=== PATIENT | male | born 1965 | race African-American/Black ===

== ENCOUNTER 2017-04-09 14:36 | Emergency (ER) | payer OTHER ==
[~2017-04-09] VITALS: Ht 175.3 cm; Wt 68.0 kg
--- NOTE | ~2017-04-09 | EKG ---
PATIENT: JENNIFER ROJAS UNIT #: [id number] Ventricular Rate: 53 BPM Atrial Rate: 53 BPM P-R Interval: 146 ms QRS Duration: 90 ms Q-T Interval: 432 ms QTC Calculation(Bezet): 405 ms P [place]: 72 degrees Calculated R [place]: 22 degrees Calculated T [place]: 41 degrees Diagnosis Line: Sinus bradycardia Diagnosis Line: Nonspecific ST abnormality Diagnosis Line: Abnormal ECG Diagnosis Line: When compared with ECG of 03-SEP-2012 19:58, Diagnosis Line: No significant change was found Diagnosis Line: Confirmed by AURELIA VALDIVIA MD ([id number]) on Diagnosis Line: 04/12/2017 11:11:35 AM INTERPRETING MD: SKIP ALVAREZ
--- NOTE | ~2017-04-09 | CT71 ---
[facility] A Service of [facility] / [facility] RADIOLOGY TEXT RESULTS PATIENT: JENNIFER ROJAS LOCATION: SED : 67 UNIT #: [id number] AGE: [address]: Jeff Tavarez MD SEX: M ORDER DR: [id number] [place] [id number] MR#: [id number] Acc #: [id number] NAME: JENNIFER ROJAS : 1965 SEX: M STUDY DATE/TIME: 04/09/2017 15:59 UNIT: SED ROOM: STUDY DESCRIPTION: CT Head Wo Contrast Attending Physician: Jeff Tavarez M.D. Ordering Physician: Jeff Tavarez M.D. Primary Care Physician: No Primary Care Physician MEDICAL IMAGING REPORT This report is preliminary unless electronic signature is present. EXAM CT head. INDICATIONS Hypertension. Dizziness. Trauma to the head. Hit a garage door approximately [address] of the head without contrast. This CT exam was performed with one or more of the following radiation dose reduction techniques: automatic exposure control, adjustment of mA and/or kV according to patient size, and iterative reconstruction. COMPARISON None available. FINDINGS Axial noncontrast images were obtained from the skull base to the vertex. Ventricular size and configuration are normal. There is no evidence of acute infarct or hemorrhage. There are no extra-axial fluid collections. No mass lesion or mass effect is seen. There are no skull fractures. There is mild mucosal thickening throughout the paranasal sinuses. IMPRESSION Normal noncontrast head CT. Dictated by... Warner Bacon M.D. [facility] A Service of [facility] / [facility] RADIOLOGY TEXT RESULTS PATIENT: JENNIFER ROJAS LOCATION: SED : 67 UNIT #: [id number] AGE: [address]: Jeff Tavarez MD SEX: M ORDER DR: THIS IS AN ELECTRONICALLY VERIFIED REPORT Warner Bacon M.D. at 04/10/2017 2:51 PM ANA/alexis TD: 04/09/2017 22:32 JOB #: [id number] MEDICAL IMAGING REPORT Page 1 of 1
[~2017-04-09 14:36] MED LIST: LISINOPRIL PO; LOTRIMIN 1% CR30 GM EXT; PLAVIX PO
[2017-04-09] MEDS ORDERED: CLOPIDOGREL75 MG PO (14:48)
[2017-04-09] MEDS ORDERED: BP MEDS X 2 (14:51)
[2017-04-09 16:07] LABS: BASOPHIL% 0.7 % (0-2.5); EOSINOPHIL# 0.3 X10e3 (0-0.7); EOSINOPHIL% 6.4 % (0.0-7.0); HEMATOCRIT 38.4 % (38.0-50.0); HEMOGLOBIN 13.1 gm/dL (13.0-16.0); LYMPHOCYTE# 1.5 X10e3 (1.0-3.5); LYMPHOCYTE% 33.3 % (17.0-45.0); MEAN CELL VOLUME 94.9 FL (83-96); MEAN CORPUSCULAR HEMOGLOBIN 32.2 PG (28-34); MEAN PLATELET VOLUME 7.7 FL (6.5-11.5); MONOCYTE# 0.4 X10e3 (0-1.0); MONOCYTE% 9.3 % (3.0-12.0); NEUTROPHIL# 2.3 X10e3 (1.5-7.1); NEUTROPHIL% 50.3 % (40-75); PLATELET COUNT 191 X10e3 (140-420); RED BLOOD COUNT 4.05 X10e (3.90-5.60); RED CELL DISTRIBUTION WIDTH 14.1 % (11.0-15.5); WHITE BLOOD COUNT 4.5 X10e3 (4.0-10.5)
[2017-04-09 16:17] LABS: POC - CKMB 1.9 ng/mL (0.0-7.9); POC - TROPONIN <0.05 ng/mL (<=0.05)
[2017-04-09 16:28] LABS: DIFF IND NO
[2017-04-09 16:40] LABS: ALBUMIN SERUM 3.5 g/dL (3.5-5.0); BILIRUBIN,TOTAL 0.5 mg/dL (0.2-2.0); BUN/CREATININE RATIO 9.16; CALCIUM SERUM 9.2 mg/dL (8.4-10.2); CREATININE SERUM 1.2 mg/dL (0.6-1.4); GLOM FILT RATE Estimated 81.3 mL/min (>60); POTASSIUM 4.4 mmol/L (3.5-5.1); PROTEIN TOTAL SERUM 7.4 g/dL (6.0-8.3)
== END 2017-04-09 17:53 | disposition home or self-care (01) ==
LOC: SED 14:36
PROVIDERS: Emergency Medicine
DX: J01.00 Acute maxillary sinusitis, unspecified (principal); R00.1 Bradycardia, unspecified; E78.5 Hyperlipidemia, unspecified; F17.210 Nicotine dependence, cigarettes, uncomplicated; Z79.899 Other long term (current) drug therapy
CPT/HCPCS: 36415; 70450; 80053; 82553; 84484; 85025; 93005; 96360; 99284